=== PATIENT | male | born 1935 | race African-American/Black ===

== ENCOUNTER 2017-06-05 09:45 | Emergency (ER) | payer MEDICARE, OTHER ==
[~2017-06-05] VITALS: Ht 162.6 cm; Wt 88.0 kg
[~2017-06-05 09:45] MED LIST: HYDR10TA16 PO; LISI-586 PO; PERC7.5T13 PO; TAMS0.4C67 PO
[2017-06-05 09:47] VITALS: BP 112/81; PULSE 105; RESP 16; TEMP 98.2; O2SAT 99
[2017-06-05] MEDS ORDERED: KETOROLAC TROMETHAMINE 60 MG/2 ML (IM) VIAL IM ONE (10:30)
[2017-06-05] MEDS ORDERED: NAPR375T4 PO (10:38)
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
== END 2017-06-05 11:37 | disposition home or self-care (01) ==
LOC: NEPD 09:45
DX: M77.9 Enthesopathy, unspecified (principal)
CPT/HCPCS: 96372; 99283; J1885